=== PATIENT | female | born 1935 | race Caucasian/White ===

== ENCOUNTER 2021-08-29 15:09 | Inpatient (IN) | payer OTHER ==
[~2021-08-29] VITALS: Ht 170.2 cm; Wt 81.6 kg
[2021-08-29 15:28] VITALS: BP_SYST 115
[2021-08-29 17:27] LABS: ANION GAP 8 (5-15); BASOPHILS # (AUTO) 0.1 K/uL (0.0-0.2); BASOPHILS % (AUTO) 1.3 % (0.0-2.0); CALCIUM 7.5 mg/dL (8.4-11.0); CHLORIDE 107 mmol/L (98-107); CREATININE 1.02 mg/dL (0.55-1.30); EOSINOPHILS # (AUTO) 0.1 K/uL (0.0-0.4); GLUCOSE 123 mg/dL (70-99); HEMATOCRIT 33.8 % (36-48); HEMOGLOBIN 11.1 g/dL (12.0-16.0); LYMPHOCYTES # (AUTO) 1.8 K/uL (1.0-5.5); LYMPHOCYTES % (AUTO) 32.3 % (20.5-51.5); MEAN CORPUSCULAR HEMOGLOBIN 29 pg (27-31); MEAN CORPUSCULAR HGB CONC 33 % (32-36); MEAN CORPUSCULAR VOLUME 89 fL (79.0-98.0); MONOCYTES # (AUTO) 0.5 K/uL (0.0-1.0); MONOCYTES % (AUTO) 9.6 % (1.7-9.3); NEUTROPHILS # (AUTO) 3.1 K/uL (1.8-7.7); NEUTROPHILS % (AUTO) 55.8 % (40.0-70.0); PLATELET COUNT (AUTO) 232 K/uL (130-430); POTASSIUM 3.6 mmol/L (3.5-5.1); RED BLOOD CELL COUNT(AUTO) 3.82 MIL/uL (4.2-6.2); SODIUM SERUM 140 mmol/L (136-145); UREA NITROGEN, BLOOD 31 mg/dL (8-21); WHITE BLOOD COUNT (AUTO) 5.6 K/uL (4.8-10.8)
[2021-08-29 17:37] LABS: ALANINE AMINOTRANSFERASE 12 U/L (12-78); ALBUMIN 2.9 g/dL (3.4-4.8); ASPARTATE AMINOTRANSFERASE 17 U/L (10-37); TOTAL BILIRUBIN 0.1 mg/dL (0.0-1.0)
[2021-08-29] MEDS ORDERED: CELE100C98 PO (19:02)
[2021-08-29] MEDS ORDERED: LEVO75CA5 PO (19:02)
[2021-08-29] MEDS ORDERED: GABA300T25 PO (19:02)
[2021-08-29] MEDS ORDERED: PANT20TA2 PO (19:02)
[2021-08-29] MEDS ORDERED: LOSA25TA18 PO (19:02)
[2021-08-29 20:03] LABS: BILIRUBIN,URINE NEGATIVE (NEGATIVE); BLOOD, URINE NEGATIVE (NEGATIVE); CLARITY/URINE CLEAR (CLEAR); COLOR,URINE YELLOW (YELLOW); GLUCOSE,URINE NEGATIVE (NEGATIVE); KETONES,URINE NEGATIVE (NEGATIVE); LEUKOCYTE ESTERASE ,URINE NEGATIVE (NEGATIVE); NITRITE, URINE NEGATIVE (NEGATIVE); PH,URINE 5.5 (5.0-8.0); PROTEIN URINE NEGATIVE (NEGATIVE); UROBILINOGEN,URINE 0.2 (0.2-1.0)
[2021-08-29] MEDS ORDERED: D5LR 1,000 ML IV ONE (20:30)
[2021-08-29] MEDS ORDERED: PANTOPRAZOLE SODIUM 40 MG/VIAL (PROTONIX) IVP ONE (20:30)
[2021-08-29] MEDS ORDERED: ONDANSETRON HCL 4 MG/2 ML VIAL IVP PRN (20:45)
[2021-08-29 22:30] VITALS: BP_SYST 141
[2021-08-30] VITALS: BP_SYST 141
[2021-08-30] MEDS: ACETAMINOPHEN 325 MG TABLET PO PRN ×2 (02:31→20:55)
[2021-08-30] MEDS: GABAPENTIN 300 MG CAPSULE PO SCH ×3 (02:31→20:54)
[2021-08-30] MEDS ORDERED: LEVOTHYROXINE SODIUM 0.075 MG TABLET PO SCH (07:00)
[2021-08-30 07:04] LABS: BASOPHILS % (AUTO) 0.4 % (0.0-2.0); EOSINOPHILS % (AUTO) 1.1 % (0.0-4.0); HEMATOCRIT 29.2 % (36-48); HEMOGLOBIN 9.9 g/dL (12.0-16.0); LYMPHOCYTES # (AUTO) 1.8 K/uL (1.0-5.5); MEAN CORPUSCULAR HEMOGLOBIN 29 pg (27-31); MEAN CORPUSCULAR HGB CONC 34 % (32-36); MEAN CORPUSCULAR VOLUME 87 fL (79.0-98.0); MONOCYTES # (AUTO) 0.4 K/uL (0.0-1.0); MONOCYTES % (AUTO) 8.6 % (1.7-9.3); NEUTROPHILS # (AUTO) 2.3 K/uL (1.8-7.7); NEUTROPHILS % (AUTO) 50.9 % (40.0-70.0); PLATELET COUNT (AUTO) 204 K/uL (130-430); RED BLOOD CELL COUNT(AUTO) 3.36 MIL/uL (4.2-6.2); RED CELL DISTRIBUTION WIDTH 14.8 % (9.0-15.0); WHITE BLOOD COUNT (AUTO) 4.5 K/uL (4.8-10.8)
[2021-08-30 07:42] LABS: TOTAL IRON BIND. CAPACITY 223 ug/dL (250-450)
[2021-08-30 07:48] LABS: ALANINE AMINOTRANSFERASE 9 U/L (12-78); ALBUMIN 2.5 g/dL (3.4-4.8); AMYLASE 50 U/L (0-100); ANION GAP 4 (5-15); ASPARTATE AMINOTRANSFERASE 13 U/L (10-37); CHLORIDE 109 mmol/L (98-107); CREATININE 0.87 mg/dL (0.55-1.30); GLUCOSE 114 mg/dL (70-99); PHOSPHORUS 3.6 mg/dL (2.7-4.5); POTASSIUM 4.1 mmol/L (3.5-5.1); SODIUM SERUM 140 mmol/L (136-145); THYROID STIMULATING HORMONE 7.15 uIu/mL (0.36-3.74); UREA NITROGEN, BLOOD 28 mg/dL (8-21)
[2021-08-30 08:00] VITALS: BP_SYST 136
[2021-08-30] MEDS ORDERED: NACL 0.9% 1,000 ML IV SCH (08:15)
[2021-08-30] MEDS: LOSARTAN POTASSIUM 25 MG TABLET PO SCH (08:35)
[2021-08-30 08:57] LABS: CALCIUM 6.9 mg/dL (8.4-11.0)
[2021-08-30 08:58] LABS: TOTAL BILIRUBIN 0.2 mg/dL (0.0-1.0)
[2021-08-30] MEDS ORDERED: NON-FORMULARY MEDICATION (Levothyroxine Sodium (Levothyroxine) 75 MCG) PO SCH (09:00)
[2021-08-30] MEDS ORDERED: PANTOPRAZOLE SODIUM 40 MG/VIAL (PROTONIX) IVP SCH (09:00)
[2021-08-30] MEDS ORDERED: PANTOPRAZOLE SODIUM 40 MG TAB PO SCH (09:00)
[2021-08-30 12:00] VITALS: BP_SYST 175
[2021-08-30] MEDS: CALCIUM CARBONATE 500 MG/ TAB.CHEW PO SCH ×3 (12:16→20:54)
[2021-08-30 16:00] VITALS: BP_SYST 148
[2021-08-30 20:00] VITALS: BP_SYST 154
[2021-08-31] VITALS: BP_SYST 133
[2021-08-31] MEDS: LEVOTHYROXINE SODIUM 0.088 MG TABLET PO SCH (06:13)
[2021-08-31 06:18] LABS: BASOPHILS % (AUTO) 0.4 % (0.0-2.0); EOSINOPHILS # (AUTO) 0.1 K/uL (0.0-0.4); EOSINOPHILS % (AUTO) 1.6 % (0.0-4.0); HEMATOCRIT 31.2 % (36-48); HEMOGLOBIN 10.5 g/dL (12.0-16.0); LYMPHOCYTES # (AUTO) 1.9 K/uL (1.0-5.5); LYMPHOCYTES % (AUTO) 37.4 % (20.5-51.5); MEAN CORPUSCULAR HEMOGLOBIN 29 pg (27-31); MEAN CORPUSCULAR HGB CONC 34 % (32-36); MEAN CORPUSCULAR VOLUME 87 fL (79.0-98.0); MONOCYTES # (AUTO) 0.5 K/uL (0.0-1.0); MONOCYTES % (AUTO) 8.8 % (1.7-9.3); NEUTROPHILS # (AUTO) 2.7 K/uL (1.8-7.7); NEUTROPHILS % (AUTO) 51.8 % (40.0-70.0); PLATELET COUNT (AUTO) 208 K/uL (130-430); RED BLOOD CELL COUNT(AUTO) 3.57 MIL/uL (4.2-6.2); WHITE BLOOD COUNT (AUTO) 5.1 K/uL (4.8-10.8)
[2021-08-31 06:24] LABS: PROTHROMBIN TIME 10.4 SECS (9.5-12.5)
[2021-08-31] MEDS ORDERED: fentaNYL CITRATE/PF 100 MCG/2 ML AMP ONE (06:56)
[2021-08-31] MEDS ORDERED: MIDAZOLAM HCL 5 MG/5 ML VIAL ONE (06:56)
[2021-08-31 07:06] LABS: FOLATE (FOLIC ACID) >20.0 ng/mL (>3.0)
[2021-08-31 08:10] VITALS: BP_SYST 155
[2021-08-31] MEDS: CHOLECALCIFEROL (VITAMIN D3) 2,000 UNIT TABLET PO SCH (08:18)
[2021-08-31] MEDS: GABAPENTIN 300 MG CAPSULE PO SCH ×2 (08:19→20:48)
[2021-08-31] MEDS: CALCIUM CARBONATE 500 MG/ TAB.CHEW PO SCH ×4 (08:19→20:51)
[2021-08-31] MEDS: LOSARTAN POTASSIUM 25 MG TABLET PO SCH (08:19)
[2021-08-31] MEDS: PANTOPRAZOLE SODIUM 40 MG TAB PO SCH ×3 (08:20→20:48)
[2021-08-31] MEDS ORDERED: PANTOPRAZOLE SODIUM 40 MG TAB PO SCH (09:00)
[2021-08-31 10:12] LABS: ALANINE AMINOTRANSFERASE 10 U/L (12-78); ALBUMIN 2.4 g/dL (3.4-4.8); ANION GAP 4 (5-15); ASPARTATE AMINOTRANSFERASE 13 U/L (10-37); CALCIUM 7.4 mg/dL (8.4-11.0); CHLORIDE 111 mmol/L (98-107); CREATININE 0.85 mg/dL (0.55-1.30); GLUCOSE 96 mg/dL (70-99); POTASSIUM 4.1 mmol/L (3.5-5.1); SODIUM SERUM 144 mmol/L (136-145); TOTAL BILIRUBIN 0.1 mg/dL (0.0-1.0); UREA NITROGEN, BLOOD 17 mg/dL (8-21)
[2021-08-31 12:00] VITALS: BP_SYST 141
[2021-08-31] MEDS ORDERED: MULTIVITAMINS TAB 1 TABLET PO ONE (15:15)
[2021-08-31 16:00] VITALS: BP_SYST 145
[2021-08-31] MEDS ORDERED: SOD FERRIC GLUC COMPLEX/SUC 125 MG in NS 100 ML IV ONE (16:00)
[2021-08-31 19:30] VITALS: BP_SYST 138
[2021-08-31] MEDS: MULTIVITAMINS TAB 1 TABLET PO SCH (20:49)
[2021-09-01 00:40] VITALS: BP_SYST 137
[2021-09-01] MEDS: LEVOTHYROXINE SODIUM 0.088 MG TABLET PO SCH (06:07)
[2021-09-01 06:59] LABS: BASOPHILS % (AUTO) 0.7 % (0.0-2.0); EOSINOPHILS # (AUTO) 0.1 K/uL (0.0-0.4); EOSINOPHILS % (AUTO) 1.8 % (0.0-4.0); HEMATOCRIT 29.3 % (36-48); HEMOGLOBIN 9.8 g/dL (12.0-16.0); LYMPHOCYTES # (AUTO) 1.8 K/uL (1.0-5.5); LYMPHOCYTES % (AUTO) 32.8 % (20.5-51.5); MEAN CORPUSCULAR HEMOGLOBIN 29 pg (27-31); MEAN CORPUSCULAR HGB CONC 33 % (32-36); MEAN CORPUSCULAR VOLUME 87 fL (79.0-98.0); MONOCYTES # (AUTO) 0.5 K/uL (0.0-1.0); MONOCYTES % (AUTO) 8.8 % (1.7-9.3); NEUTROPHILS % (AUTO) 55.9 % (40.0-70.0); PLATELET COUNT (AUTO) 219 K/uL (130-430); RED BLOOD CELL COUNT(AUTO) 3.35 MIL/uL (4.2-6.2); RED CELL DISTRIBUTION WIDTH 14.8 % (9.0-15.0); WHITE BLOOD COUNT (AUTO) 5.4 K/uL (4.8-10.8)
[2021-09-01 07:30] LABS: ANION GAP 8 (5-15); CALCIUM 7.5 mg/dL (8.4-11.0); CHLORIDE 111 mmol/L (98-107); CREATININE 0.79 mg/dL (0.55-1.30); GLUCOSE 92 mg/dL (70-99); POTASSIUM 3.7 mmol/L (3.5-5.1); SODIUM SERUM 144 mmol/L (136-145); UREA NITROGEN, BLOOD 17 mg/dL (8-21)
[2021-09-01] MEDS: MULTIVITAMINS TAB 1 TABLET PO SCH (10:47)
[2021-09-01] MEDS: GABAPENTIN 300 MG CAPSULE PO SCH (10:48)
[2021-09-01] MEDS: LOSARTAN POTASSIUM 25 MG TABLET PO SCH (10:48)
[2021-09-01] MEDS: CHOLECALCIFEROL (VITAMIN D3) 2,000 UNIT TABLET PO SCH (10:49)
[2021-09-01] MEDS: ACETAMINOPHEN 325 MG TABLET PO PRN (10:58)
[2021-09-01] MEDS: CALCIUM CARBONATE 500 MG/ TAB.CHEW PO SCH (10:58)
[2021-09-01] MEDS: PANTOPRAZOLE SODIUM 40 MG TAB PO SCH (10:58)
[2021-09-01 11:32] VITALS: BP_SYST 155
[2021-09-01] MEDS ORDERED: SOD FERRIC GLUC COMPLEX/SUC 125 MG in NS 100 ML IV SCH (12:00)
[2021-09-01] MEDS ORDERED: VITD2000 PO (12:25)
[2021-09-01] MEDS ORDERED: PRO40 PO (12:25)
[2021-09-01] MEDS ORDERED: CALC500T63 PO (12:25)
[2021-09-01] MEDS ORDERED: MULT-1117 PO (12:25)
[2021-09-01 14:39] VITALS: BP_SYST 155
== END 2021-09-01 17:53 | disposition home health service (06) | DRG 378 ==
LOC: SED 15:09 → STU 20:52
PROVIDERS: ADMIT Internal Medicine; ATTEND Internal Medicine
PROC: 0DB68ZX Excision of Stomach, Via Natural or Artificial Opening Endoscopic, Diagnostic (ICD-10-PCS; principal; 2021-08-31 07:00)
DX: K25.4 Chronic or unspecified gastric ulcer with hemorrhage (principal); D62 Acute posthemorrhagic anemia; E44.0 Moderate protein-calorie malnutrition; I10 Essential (primary) hypertension; E03.9 Hypothyroidism, unspecified; E78.5 Hyperlipidemia, unspecified; E83.51 Hypocalcemia; G89.29 Other chronic pain; K44.9 Diaphragmatic hernia without obstruction or gangrene; K21.9 Gastro-esophageal reflux disease without esophagitis; K57.90 Diverticulosis of intestine, part unspecified, without perforation or abscess without bleeding; M19.90 Unspecified osteoarthritis, unspecified site; M54.12 Radiculopathy, cervical region; M79.7 Fibromyalgia; Z79.899 Other long term (current) drug therapy; Z90.710 Acquired absence of both cervix and uterus; Z98.1 Arthrodesis status; B96.81 Helicobacter pylori [H. pylori] as the cause of diseases classified elsewhere
CPT/HCPCS: 36415; 43239; 71045; 72125-TC; 76376; 80048; 80053; 81003; 82150; 82607; 82746; 83540; 83550; 83605; 83735; 84100; 84443; 84484; 85025; 85610-TC; 87040; 87081; 87086; 88305; 88312; 88313; 93005; 93306; 93880; 97116-GP; 97163-GP; 99285; C9113; G0378; J2250; J2916; J3010

== ENCOUNTER 2021-11-26 15:04 | Inpatient (IN) | payer OTHER ==
[~2021-11-26] VITALS: Ht 167.6 cm; Wt 83.9 kg
[~2021-11-26 15:04] MED LIST: CALC500T63 PO; LEVO75CA5 PO; LOSA25TA18 PO; MULT-1117 PO; PANT20TA2 PO; PRO40 PO; VITD2000 PO
[2021-11-26 15:15] VITALS: BP_SYST 109
--- NOTE | 2021-11-26 18:50 | NUR ---
Patient to ER bed 8 to gown for evaluation. Side rails up.
[2021-11-26] MEDS ORDERED: PANTOPRAZOLE SODIUM 40 MG/VIAL (PROTONIX) IVP ONE (19:00)
--- NOTE | 2021-11-26 19:00 | NUR ---
Pt presents to ED c/o/ black stool.
[2021-11-26 19:38] LABS: BASOPHILS % (AUTO) 0.5 % (0.0-2.0); EOSINOPHILS # (AUTO) 0.2 K/uL (0.0-0.4); EOSINOPHILS % (AUTO) 2.9 % (0.0-4.0); HEMATOCRIT 34.7 % (36-48); LYMPHOCYTES # (AUTO) 1.4 K/uL (1.0-5.5); LYMPHOCYTES % (AUTO) 24.4 % (20.5-51.5); MEAN CORPUSCULAR VOLUME 84 fL (79.0-98.0); MONOCYTES # (AUTO) 0.8 K/uL (0.0-1.0); MONOCYTES % (AUTO) 13.5 % (1.7-9.3); NEUTROPHILS # (AUTO) 3.4 K/uL (1.8-7.7); NEUTROPHILS % (AUTO) 58.7 % (40.0-70.0); PLATELET COUNT (AUTO) 220 K/uL (130-430); RED BLOOD CELL COUNT(AUTO) 4.15 MIL/uL (4.2-6.2); RED CELL DISTRIBUTION WIDTH 15.9 % (9.0-15.0); WHITE BLOOD COUNT (AUTO) 5.9 K/uL (4.8-10.8)
[2021-11-26 19:51] LABS: ANION GAP 4 (5-15); CALCIUM 9.8 mg/dL (8.4-11.0); CHLORIDE 104 mmol/L (98-107); CREATININE 1.18 mg/dL (0.55-1.30); GLUCOSE 119 mg/dL (70-99); POTASSIUM 4.3 mmol/L (3.5-5.1); UREA NITROGEN, BLOOD 23 mg/dL (8-21)
[2021-11-26 19:52] LABS: PROTHROMBIN TIME 9.9 SECS (9.5-12.5)
[2021-11-26 20:00] LABS: ALANINE AMINOTRANSFERASE 12 U/L (12-78); ALBUMIN 2.8 g/dL (3.4-4.8); ASPARTATE AMINOTRANSFERASE 18 U/L (10-37); TOTAL BILIRUBIN 0.2 mg/dL (0.0-1.0)
[2021-11-26] MEDS ORDERED: PANTOPRAZOLE SODIUM 40 MG/VIAL (PROTONIX) ONE (21:18)
--- NOTE | 2021-11-26 21:27 | NUR ---
COVID SWAB SENT TO LAB.
--- NOTE | 2021-11-26 21:30 | NUR ---
Admit bed requested Patient will be admitted to care of . Admitted to MED SURG unit. Diagnosis GI BLEED Inpatient (Yes or No) YES Observation (Yes or No) NO Orientation concerns or request close to nursing station (Yes or No) NO Covid Status PENDING On vent or bipap NO Isolation requirements NO Needs a sitter NO From Home (Yes or if No enter name of facility) YES Requires Dialysis (Yes or No) NO Med Rec Completed (Yes of No) PENDING
--- NOTE | 2021-11-26 21:30 | NUR ---
Patient will be admitted to care of DR. TINOCO. Admitted to MED SURG unit.
--- NOTE | 2021-11-26 21:32 | NUR ---
COVID TEST/SHA OBTAINED LABLED AND SENT TO THE LAB
[2021-11-26] MEDS ORDERED: LORazepam 1 MG TABLET PO PRN (21:45)
[2021-11-26] MEDS ORDERED: ONDANSETRON HCL 4 MG/2 ML VIAL IVP PRN (21:45)
--- NOTE | 2021-11-27 05:03 | NUR ---
CRISTELA GAVE REPORT TO BETHANIE ARCHIBALD FOR CONTINUITY OF CARE
--- NOTE | 2021-11-27 06:04 | NUR ---
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
[2021-11-27 06:27] VITALS: BP_SYST 123
[2021-11-27] MEDS ORDERED: ONDANSETRON HCL 4 MG/2 ML VIAL IVP PRN (06:30)
[2021-11-27 07:13] LABS: BASOPHILS % (AUTO) 0.5 % (0.0-2.0); EOSINOPHILS # (AUTO) 0.2 K/uL (0.0-0.4); EOSINOPHILS % (AUTO) 3.1 % (0.0-4.0); LYMPHOCYTES # (AUTO) 1.4 K/uL (1.0-5.5); LYMPHOCYTES % (AUTO) 27.8 % (20.5-51.5); MEAN CORPUSCULAR VOLUME 83 fL (79.0-98.0); MONOCYTES # (AUTO) 0.6 K/uL (0.0-1.0); MONOCYTES % (AUTO) 11.8 % (1.7-9.3); NEUTROPHILS # (AUTO) 2.9 K/uL (1.8-7.7); NEUTROPHILS % (AUTO) 56.8 % (40.0-70.0); PLATELET COUNT (AUTO) 227 K/uL (130-430); RED BLOOD CELL COUNT(AUTO) 4.08 MIL/uL (4.2-6.2); RED CELL DISTRIBUTION WIDTH 15.7 % (9.0-15.0); WHITE BLOOD COUNT (AUTO) 5.1 K/uL (4.8-10.8)
--- NOTE | 2021-11-27 07:23 | NUR ---
SBAR REPORT RECEIVED FROM NIGHT RN, ALL CARES ASSUMED.
[2021-11-27 07:43] LABS: ANION GAP 6 (5-15); CHLORIDE 105 mmol/L (98-107); CREATININE 1.04 mg/dL (0.55-1.30); GLUCOSE 99 mg/dL (70-99); PHOSPHORUS 3.5 mg/dL (2.7-4.5); POTASSIUM 4.1 mmol/L (3.5-5.1); UREA NITROGEN, BLOOD 20 mg/dL (8-21)
[2021-11-27 08:00] VITALS: BP_SYST 156
[2021-11-27] MEDS: D5/0.45 NS 1,000 ML IV SCH ×3 (08:24→23:09)
[2021-11-27] MEDS: PANTOPRAZOLE SODIUM 40 MG/VIAL (PROTONIX) IVP SCH ×2 (08:24→22:21)
[2021-11-27 11:42] VITALS: BP_SYST 158
[2021-11-27 16:33] VITALS: BP_SYST 149
--- NOTE | 2021-11-27 19:25 | NUR ---
SBAR REPORT GIVEN TO MICA ARCHIBALD, ALL CARES ENDORSED.
[2021-11-27 20:00] VITALS: BP_SYST 158
--- NOTE | 2021-11-27 23:15 | NUR ---
IV start IV site to LAC was out, linen wet. She was provided with clean, dry linen, gown. New IV site was started. #20G angiocath was placed to RAC, blood return noted, patient tolerated. Hung new bag of IVF; D5 1/2 ns infusing well, tolerating. patient ambulated to restroom for void with assist and returned to bed with assist; Safety precautions in place and call light w/in reach.
[2021-11-28] VITALS: BP_SYST 155
[2021-11-28] MEDS ORDERED: SIMETHICONE 40 MG/0.6 ML ML ONE (06:29)
[2021-11-28] MEDS ORDERED: MIDAZOLAM HCL 5 MG/5 ML VIAL ONE (06:30)
[2021-11-28] MEDS ORDERED: fentaNYL CITRATE/PF 100 MCG/2 ML AMP ONE (06:30)
[2021-11-28 06:42] LABS: BASOPHILS % (AUTO) 0.6 % (0.0-2.0); EOSINOPHILS # (AUTO) 0.1 K/uL (0.0-0.4); HEMATOCRIT 33.5 % (36-48); LYMPHOCYTES # (AUTO) 1.4 K/uL (1.0-5.5); LYMPHOCYTES % (AUTO) 26.9 % (20.5-51.5); MEAN CORPUSCULAR VOLUME 83 fL (79.0-98.0); MONOCYTES # (AUTO) 0.6 K/uL (0.0-1.0); MONOCYTES % (AUTO) 11.6 % (1.7-9.3); NEUTROPHILS # (AUTO) 2.9 K/uL (1.8-7.7); NEUTROPHILS % (AUTO) 57.9 % (40.0-70.0); PLATELET COUNT (AUTO) 224 K/uL (130-430); RED BLOOD CELL COUNT(AUTO) 4.02 MIL/uL (4.2-6.2); RED CELL DISTRIBUTION WIDTH 15.6 % (9.0-15.0)
[2021-11-28 06:55] LABS: PROTHROMBIN TIME 10.4 SECS (9.5-12.5)
[2021-11-28 07:28] LABS: ANION GAP 6 (5-15); CALCIUM 8.4 mg/dL (8.4-11.0); CHLORIDE 108 mmol/L (98-107); GLUCOSE 125 mg/dL (70-99); POTASSIUM 3.6 mmol/L (3.5-5.1); UREA NITROGEN, BLOOD 13 mg/dL (8-21)
--- NOTE | 2021-11-28 08:03 | NUR ---
Pt off the unit for procedure.
[2021-11-28] MEDS ORDERED: BISMUTH SUBSALICYLATE 262 MG TAB.CHEW PO PRN (10:00)
--- NOTE | 2021-11-28 10:00 | NUR ---
Patient back to the unit. Pt asleep but arousable and stable.
[2021-11-28] MEDS ORDERED: DOXY100C5 PO (10:43)
[2021-11-28] MEDS ORDERED: PRO40 PO ×2 (10:43)
[2021-11-28] MEDS ORDERED: METR-154 PO (10:43)
[2021-11-28] MEDS ORDERED: PEPTAB PO (10:43)
[2021-11-28] MEDS ORDERED: DOXYCYCLINE HYCLATE 100 MG CAPSULE PO ONE (11:00)
[2021-11-28] MEDS ORDERED: metroNIDAZOLE 500 MG TABLET PO ONE (11:00)
[2021-11-28 11:30] VITALS: BP_SYST 144
[2021-11-28] MEDS: PANTOPRAZOLE SODIUM 40 MG/VIAL (PROTONIX) IVP SCH (11:49)
--- NOTE | 2021-11-28 14:15 | NUR ---
Paged Dr. Sotelo to obtain order for Gi clearance for pt to go home. Awaiting for call back.
--- NOTE | 2021-11-28 14:23 | NUR ---
GI MD DR MEDRANO WAS CALLED, RE: CLEARANCE TO DISCHARGE PT HOME. SPOKE TO CATRACHO.
[2021-11-28 14:43] VITALS: BP_SYST 144
--- NOTE | 2021-11-28 15:51 | NUR ---
DISCHARGE INSTRUCTIONS, FOLLOW UP APPOINTMENT, PRESCRIPTION MEDS, IV LINE D/CIERRA, AND BELONGINGS RETURNED TO PT. QUESTIONS AND CONCERNS ANSWERED. PT VERBALIZES UNDERSTANDING OF D/C INSTRUCTION. PT VS STABLE, NO ACUTE DISTRESS NOTED, DENIES ANY PAIN. ASSISTED PT OUT OF THE UNIT VIA WHEELCHAIR.
[2021-11-28] MEDS ORDERED: DOXYCYCLINE HYCLATE 100 MG CAPSULE PO SCH (21:00)
[2021-11-28] MEDS ORDERED: metroNIDAZOLE 500 MG TABLET PO SCH (21:00)
== END 2021-11-28 15:30 | disposition home or self-care (01) | DRG 378 ==
LOC: SED 15:04 → SMU 21:27
PROVIDERS: ADMIT Preventive Medicine Preventive Medicine/Occupational Environmental Medicine; ATTEND Preventive Medicine Preventive Medicine/Occupational Environmental Medicine
PROC: 0DB78ZX Excision of Stomach, Pylorus, Via Natural or Artificial Opening Endoscopic, Diagnostic (ICD-10-PCS; principal; 2021-11-28 10:45)
DX: K25.4 Chronic or unspecified gastric ulcer with hemorrhage (principal); E44.0 Moderate protein-calorie malnutrition; K29.71 Gastritis, unspecified, with bleeding; E55.9 Vitamin D deficiency, unspecified; Z20.822 Contact with and (suspected) exposure to COVID-19; I10 Essential (primary) hypertension; E03.9 Hypothyroidism, unspecified; I25.10 Atherosclerotic heart disease of native coronary artery without angina pectoris; R73.9 Hyperglycemia, unspecified; E88.09 Other disorders of plasma-protein metabolism, not elsewhere classified; D64.9 Anemia, unspecified; K44.9 Diaphragmatic hernia without obstruction or gangrene; B96.81 Helicobacter pylori [H. pylori] as the cause of diseases classified elsewhere; Z68.29 Body mass index [BMI] 29.0-29.9, adult
CPT/HCPCS: 36415; 43239; 76376; 80048; 80053; 83735; 84100; 85025; 85610-TC; 85730-TC; 87081; 88305; 88312; 88313; 96374; 99291; C9113; J2250; J3010